=== PATIENT | male | born 1985 ===

== ENCOUNTER 2017-10-09 22:17 | Emergency (ER) | payer BC ==
[2017-10-09 22:26] VITALS: TEMP 98.2
--- NOTE | 2017-10-09 22:46 | C.PDOC ---
History Of Present Illness 32 year old male patient presents to the ER with intermittent mid-upper abdominal pain that started on 10/07 and would last for an hour, but has now resolved in the ER. Patient reports the pain is radiating to the lower back associated with nausea, constipation, dizziness, and increasing pain when lying down. Patient denies of vomiting, dysuria, coughing, SOB, and diarrhea. Chief Complaint (Nursing): Abdominal Pain History Per: Patient Onset/Duration Of Symptoms: Days, Intermittent Episodes Current Symptoms Are (Timing): Gone Location Of Pain/Discomfort: Other (mid-upper abdominal pain) Radiation Of Pain To:: Back Associated Symptoms: Nausea, Back Pain, Constipation. denies: Fever, Vomiting, Diarrhea, Chest Pain, Other (no SOB, and no cough ) Exacerbating Factors: Supine Additional History Per: Patient Past Medical History Reviewed: Historical Data, Nursing Documentation, Vital Signs Vital Signs: Last Vital Signs Temp 98.2 F 10/09/17 23:39 Pulse 72 10/09/17 23:39 Resp 20 10/09/17 23:39 BP 107/65 10/09/17 23:39 Pulse Ox 98 10/09/17 23:39 - Medical History PMH: No Chronic Diseases Surgical History: No Surg Hx Family History: States: No Known Family Hx - Social History Hx Alcohol Use: No Hx Substance Use: No - Immunization History Hx Tetanus Toxoid Vaccination: No Hx Influenza Vaccination: No Hx Pneumococcal Vaccination: No Review Of Systems Except As Marked, All Systems Reviewed And Found Negative. Constitutional: Negative for: Fever Cardiovascular: Negative for: Chest Pain Respiratory: Negative for: Cough, SOB with Excertion Gastrointestinal: Positive for: Nausea, Abdominal Pain (mid-upper), Constipation. Negative for: Vomiting, Diarrhea Genitourinary: Negative for: Dysuria Musculoskeletal: Positive for: Back Pain (lower) Neurological: Positive for: Dizziness Physical Exam - Physical Exam Appears: Non-toxic, No Acute Distress Skin: Normal Color, Warm, Dry Head: Atraumatic, Normacephalic Eye(s): bilateral: Normal Inspection Ear(s): Bilateral: Normal Nose: Normal Oral Mucosa: Moist Tongue: Normal Appearing Lips: Normal Appearing Throat: Normal Neck: Normal ROM, Supple Lymphatic: Normal Exam Chest: Symmetrical, No Deformity, No Tenderness Cardiovascular: Rhythm Regular Respiratory: Normal Breath Sounds, No Rales, No Rhonchi, No Stridor, No Wheezing Gastrointestinal/Abdominal: Soft, No Tenderness, Other (No Mcburney's and Mendez 's tenderness) Back: No CVA Tenderness Male Genital: Normal Inspection, No Circumcised, Other (no hernia) Extremity: Normal ROM (x4) Neurological/Psych: Oriented x3, Normal Speech Gait: Steady ED Course And Treatment - Laboratory Results Result Diagrams: 10/09/17 23:03 10/09/17 23:03 O2 Sat by Pulse Oximetry: 99 (RA) Pulse Ox Interpretation: Normal Medical Decision Making Medical Decision Making: Impression: undifferentiated abd pain, gastritis, cholecystits, GERD Ordered: Blood work * Normal labs * stable for D/C home, follow up with PMD Disposition - Disposition Referrals: [facility] [Outside] Disposition: HOME/ ROUTINE Disposition Time: 05:01 Condition: FAIR Prescriptions: Pantoprazole Sodium [Protonix] 40 mg PO DAILY #14 ect Instructions: Acute Abdomen (Belly Pain) Forms: Gen Discharge Inst Croatian, [employer] (Danish) Print Language: MICRONESIAN - Clinical Impression Clinical Impression: Abdominal pain - Scribe Statement The provider has reviewed the documentation as recorded by the Rere Gilbert Do Provider Attestation: All medical record entries made by the Scribe were at my direction and personally dictated by me. I have reviewed the chart and agree that the record accurately reflects my personal performance of the history, physical exam, medical decision making, and the department course for this patient. I have also personally directed, reviewed, and agree with the discharge instructions and disposition.
--- NOTE | 2017-10-09 22:47 | C.PDOC ---
Chief Complaint (Nursing): Abdominal Pain Past Medical History Vital Signs: Last Vital Signs Temp 98.2 F 10/09/17 22:22 Pulse 80 10/09/17 22:22 Resp 14 10/09/17 22:22 BP 125/72 10/09/17 22:22 Pulse Ox 99 10/09/17 22:22 - Social History Hx Alcohol Use: No Hx Substance Use: No - Immunization History Hx Tetanus Toxoid Vaccination: No Hx Influenza Vaccination: No Hx Pneumococcal Vaccination: No ED Course And Treatment O2 Sat by Pulse Oximetry: 99 Disposition - Disposition
[2017-10-09 23:07] LABS: BASO % 0.2 % (0.0-2.0); EOS # 0.1 K/uL (0.0-0.7); EOS % 2.2 % (0.0-4.0); LYMPH # 1.6 K/uL (1.0-4.3); LYMPH % 32.5 % (20.0-40.0); MEAN CELL VOLUME 88.2 fL (80.0-94.0); MEAN CORPUSCULAR HEMOGLOBIN 30.6 pg (27.0-31.0); MEAN CORPUSCULAR HGB CONC 34.7 g/dL (33.0-37.0); MEAN PLATELET VOLUME 8.1 fL (7.2-11.7); MONO # 0.5 K/uL (0.0-0.8); MONO % 10.1 % (0.0-10.0); NEUT # 2.6 K/uL (1.8-7.0); RBC 4.58 Mil/uL (4.40-5.90); RED CELL DISTRIBUTION WIDTH 12.6 % (11.5-14.5); WHITE BLOOD COUNT 4.8 K/uL (4.8-10.8)
[2017-10-09 23:20] LABS: ALB/GLOB RATIO 1.6 (1.0-2.1); ALBUMIN 4.4 g/dL (3.5-5.0); ALT/SGPT 27 U/L (21-72); AST/SGOT 35 U/L (17-59); BLOOD UREA NITROGEN 16 mg/dL (9-20); CALCIUM 8.7 mg/dl (8.6-10.4); GFR AFRICAN-AMERICAN > 60; GFR NON-AFRICAN AMERICAN > 60; LIPASE 89 U/L (23-300)
[2017-10-09 23:42] VITALS: BP 107/65; PULSE 72; RESP 20
[2017-10-10 05:02] VITALS: O2SAT 99
== END 2017-10-09 23:42 | disposition home or self-care (01) ==
LOC: C.ER 22:17
DX: R10.10 Upper abdominal pain, unspecified (principal)

== ENCOUNTER 2017-10-22 02:37 | Emergency (ER) | payer BC ==
--- NOTE | 2017-10-22 02:46 | C.PDOC ---
Time Seen by Provider: 10/22/17 02:45 Chief Complaint (Nursing): Dizziness/Lightheaded Past Medical History Vital Signs: Last Vital Signs Temp 98.8 F 10/22/17 02:44 Pulse 84 10/22/17 02:44 Resp BP 123/87 10/22/17 02:44 Pulse Ox 97 10/22/17 02:44 - Social History Hx Alcohol Use: No Hx Substance Use: No - Immunization History Hx Tetanus Toxoid Vaccination: No Hx Influenza Vaccination: No Hx Pneumococcal Vaccination: No ED Course And Treatment O2 Sat by Pulse Oximetry: 97 Disposition Counseled Patient/Family Regarding: Studies Performed, Diagnosis - Disposition Disposition Time: 02:46
--- NOTE | 2017-10-22 02:46 | C.PDOC ---
History Of Present Illness 32 year old male presents to the ED c/o nausea, 1 episode of vomiting and mild dizziness. Patient states he recently started a regimen of shingles treatment including valtrex and prednisone. Patient reports feeling better with the medications. Patient denies fever, chills, nausea, vomit, diarrhea, headache, weakness, numbness. Time Seen by Provider: 10/22/17 02:45 Chief Complaint (Nursing): Dizziness/Lightheaded History Per: Patient History/Exam Limitations: no limitations Onset/Duration Of Symptoms: Days Current Symptoms Are (Timing): Still Present Recent travel outside of the [place]: No Additional History Per: Patient Past Medical History Reviewed: Historical Data, Nursing Documentation, Vital Signs Vital Signs: Last Vital Signs Temp 98.8 F 10/22/17 02:44 Pulse 84 10/22/17 02:44 Resp BP 123/87 10/22/17 02:44 Pulse Ox 97 10/22/17 03:24 - Medical History Other PMH: shingles Surgical History: No Surg Hx Family History: States: Unknown Family Hx - Social History Hx Alcohol Use: No Hx Substance Use: No - Immunization History Hx Tetanus Toxoid Vaccination: No Hx Influenza Vaccination: No Hx Pneumococcal Vaccination: No Review Of Systems Constitutional: Negative for: Fever, Chills Cardiovascular: Negative for: Chest Pain, Palpitations Gastrointestinal: Positive for: Nausea, Vomiting. Negative for: Abdominal Pain Skin: Positive for: Rash Neurological: Positive for: Dizziness. Negative for: Weakness, Numbness, Headache Physical Exam - Physical Exam Appears: Non-toxic, No Acute Distress Skin: Warm, Dry, Rash (zoster on sternum) Head: Normacephalic Eye(s): bilateral: Normal Inspection Oral Mucosa: Moist Neck: Supple Chest: Symmetrical Cardiovascular: Rhythm Regular Respiratory: No Rales, No Rhonchi, No Wheezing Gastrointestinal/Abdominal: Soft, No Tenderness, No Guarding, No Rebound Extremity: No Tenderness, No Swelling Extremity: Bilateral: Atraumatic, Normal Color And Temperature, Normal ROM Neurological/Psych: Oriented x3, Normal Speech Gait: Steady ED Course And Treatment O2 Sat by Pulse Oximetry: 97 (ON RA) Pulse Ox Interpretation: Normal Progress Note: Plan: - Protonix 40 gm PO. - Zofran 4 mg PO Reevaluation Time: 06:08 Reassessment Condition: Improved Disposition Counseled Patient/Family Regarding: Studies Performed, Diagnosis, Need For Followup, Rx Given - Disposition Referrals: Mani Hidalgo MD [Staff Provider] - Disposition: HOME/ ROUTINE Disposition Time: 02:46 Condition: FAIR Prescriptions: Ondansetron ODT [Zofran ODT] 1 odt PO BID PRN #6 odt PRN Reason: Nausea/Vomiting Pantoprazole Sodium [Protonix] 40 mg PO DAILY #15 ect Instructions: Nausea and Vomiting, Adult (DC), Adverse Drug Reactions, Adult ( DC) Forms: [employer] (Syrian) - Clinical Impression Clinical Impression: Nausea & vomiting, Medication side effect - Scribe Statement The provider has reviewed the documentation as recorded by the Scribe Jer Isabel All medical record entries made by the Scribe were at my direction and personally dictated by me. I have reviewed the chart and agree that the record accurately reflects my personal performance of the history, physical exam, medical decision making, and the department course for this patient. I have also personally directed, reviewed, and agree with the discharge instructions and disposition.
[2017-10-22] MEDS ORDERED: Pantoprazole 40 mg EC Tab PO STA (03:00)
[2017-10-22] MEDS ORDERED: Pantoprazole 40 mg EC Tab PO ONE (03:18)
[2017-10-22 06:19] VITALS: BP 116/63; PULSE 81; RESP 16; TEMP 98.5; O2SAT 98
== END 2017-10-22 06:19 | disposition home or self-care (01) ==
LOC: C.ER 02:37
DX: R11.2 Nausea with vomiting, unspecified (principal); T50.995A Adverse effect of other drugs, medicaments and biological substances, initial encounter; Y92.89 Other specified places as the place of occurrence of the external cause